=== PATIENT | male | born 1945 | race Caucasian/White ===

== ENCOUNTER 2017-10-01 09:01 | Emergency (ER) | payer MEDICARE ==
[~2017-10-01] VITALS: Ht 177.8 cm; Wt 96.3 kg
[~2017-10-01 09:01] MED LIST: ALLOPURINOL100 MG PO; GABAPENTIN300 MG PO; METOPROL TAR25 MG PO; PAROXETINE10 MG PO; PRAVASTATIN SOD20 MG PO; ZESTRIL10 M1 PO
[2017-10-01] MEDS ORDERED: TRAMADOL HYDROC50 MG PO (09:28)
[2017-10-01] MEDS ORDERED: EC-NAPROSYN500 MG PO (09:28)
[2017-10-01 10:00] VITALS: BP 150/82
[2017-10-01] MEDS ORDERED: LEVOTHYROXIN125 MCG PO (10:01)
== END 2017-10-01 10:00 | disposition home or self-care (01) ==
LOC: ED 09:01
PROC: 2W39X1Z Immobilization of Left Upper Extremity using Splint (ICD-10-PCS; principal; 2017-10-01)
DX: S52.022A Displaced fracture of olecranon process without intraarticular extension of left ulna, initial encounter for closed fracture (principal); I10 Essential (primary) hypertension; M10.9 Gout, unspecified; E03.9 Hypothyroidism, unspecified; F43.10 Post-traumatic stress disorder, unspecified; W22.01XA Walked into wall, initial encounter; Y93.89 Activity, other specified; Y92.009 Unspecified place in unspecified non-institutional (private) residence as the place of occurrence of the external cause

== ENCOUNTER 2021-05-07 16:16 | Emergency (ER) | payer OTHER ==
[~2021-05-07] VITALS: Ht 177.8 cm; Wt 97.0 kg
[~2021-05-07 16:16] MED LIST changes: +EC-NAPROSYN500 MG PO; +LEVOTHYROXIN125 MCG PO; +TRAMADOL HYDROC50 MG PO
[2021-05-07 17:26] VITALS: BP 156/81
== END 2021-05-07 17:30 | disposition left against medical advice (07) | DRG 552 ==
LOC: ED 16:16
DX: M54.5 Low back pain (principal); R10.31 Right lower quadrant pain; R10.32 Left lower quadrant pain; I10 Essential (primary) hypertension; Z91.19 Patient's noncompliance with other medical treatment and regimen

== ENCOUNTER 2021-05-08 17:13 | Emergency (ER) | payer OTHER ==
[~2021-05-08] VITALS: Ht 177.8 cm; Wt 97.0 kg
[2021-05-08 17:37] LABS: HEMATOCRIT 48.4 % (39.0-50.0); HEMOGLOBIN 16.7 g/dl (14.0-18.0); IMMATURE GRANULOCYTES 0.2 % (0.0-5.0); MEAN CELL VOLUME 86.3 fL CALC (80.0-100.0); MEAN CORPUSCULAR HGB 29.8 pG CALC (26.0-32.0); MEAN CORPUSCULAR HGB CONC 34.5 g/dL CAL (32.0-36.0); NEUT# 5.97 thou/uL (1.82-7.42); RED BLOOD COUNT 5.61 mill/uL (4.70-6.10); RED CELL DISTRI WIDTH 11.6 % (11.5-15.5)
[2021-05-08 17:39] LABS: URINE BILIRUBIN - DIPSTICK NEGATIVE (NEGATIVE); URINE BLOOD DIPSTICK NEGATIVE (NEGATIVE); URINE COLOR YELLOW; URINE GLUCOSE - DIPSTICK NEGATIVE (NEGATIVE); URINE KETONE NEGATIVE (NEGATIVE); URINE LEUK ESTERASE NEGATIVE (NEGATIVE); URINE PH 5.5 (4.5-8.0); URINE PROTEIN - DIPSTICK NEGATIVE (NEG-TRACE); URINE UROBILINOGEN - DIPSTICK 0.2 E.U./dL (0.2)
[2021-05-08 17:43] LABS: URINE NITRITE - DIPSTICK NEGATIVE (Negative)
[2021-05-08 17:52] LABS: ALBUMIN 4.5 g/dL (3.2-5.0); ALKALINE PHOSPHATASE 42 u/l (38-126); ANION GAP 17 (6-22 (CALC)); BILIRUBIN, TOTAL 0.7 mg/dL (0.0-1.4); BUN 24 mg/dL (8-23); BUN/CREATININE RATIO 16 (12-20 (CALC)); CARBON DIOXIDE 26 mmol/l (22-30); CHLORIDE 101 mmol/l (95-108); CREATININE 1.5 mg/dL (0.7-1.3); GFR 46 ML/MIN (>=60 (CALC)); GFR FOR AFR.AMER. 55 ML/MIN (>=60 (CALC)); LIPASE 100 u/l (23-300); POTASSIUM 4.7 mmol/l (3.5-5.1); SGOT/AST 37 u/l (19-48); SODIUM 139 mmol/l (137-146); TOTAL PROTEIN 8.2 g/dL (6.3-8.2)
[2021-05-08 19:14] VITALS: BP 150/80
== END 2021-05-08 19:14 | disposition home or self-care (01) | DRG 552 ==
LOC: ED 17:13
DX: M54.5 Low back pain (principal); N40.0 Benign prostatic hyperplasia without lower urinary tract symptoms